=== PATIENT | male | born 1990 | race Caucasian/White ===

== ENCOUNTER → 2016-12-18 | Outpatient (CLI) | payer BC ==
[~2016-12-18] MED LIST: ADVIL200 MG PO
== END | disposition disaster alternative care site (69) ==
LOC: GPOC 12-16 15:00 → GRAD 11:58 → GPOC 13:00
PROC: 3E0R33Z Introduction of Anti-inflammatory into Spinal Canal, Percutaneous Approach (ICD-10-PCS; principal; 2016-12-18)
PROC: 3E0R3BZ Introduction of Anesthetic Agent into Spinal Canal, Percutaneous Approach (ICD-10-PCS; 2016-12-18)
PROC: B01BYZZ Fluoroscopy of Spinal Cord using Other Contrast (ICD-10-PCS; 2016-12-18)
DX: M47.812 Spondylosis without myelopathy or radiculopathy, cervical region (principal); R68.89 Other general symptoms and signs
CPT/HCPCS: J3301